=== PATIENT | female | born 1980 ===

== ENCOUNTER 2017-11-01 12:27 | Emergency (ER) | payer OTHER ==
[~2017-11-01] VITALS: Ht 162.6 cm; Wt 77.1 kg
[~2017-11-01 12:27] MED LIST: PRENATAL1 TAB
== END 2017-11-01 14:57 | disposition home or self-care (01) ==
LOC: ER 12:27
DX: S90.02XA Contusion of left ankle, initial encounter (principal); W18.39XA Other fall on same level, initial encounter; Y93.89 Activity, other specified; Y92.89 Other specified places as the place of occurrence of the external cause; Y99.8 Other external cause status

== ENCOUNTER 2018-04-20 07:57 | Outpatient (CLI) | payer OTHER | END 2018-04-20 08:08 | disposition home or self-care (01) | LOC: LAB 07:57 | DX: Z00.00 Encounter for general adult medical examination without abnormal findings (principal); R42 Dizziness and giddiness ==

== ENCOUNTER 2018-07-22 12:34 | Emergency (ER) | payer OTHER ==
[~2018-07-22] VITALS: Ht 167.6 cm; Wt 106.6 kg
== END 2018-07-22 17:09 | disposition home or self-care (01) ==
LOC: ER 12:34
DX: T78.1XXA Other adverse food reactions, not elsewhere classified, initial encounter (principal); R21 Rash and other nonspecific skin eruption

== ENCOUNTER → 2019-07-17 08:14 | Outpatient (CLI) | payer OTHER | END | disposition home or self-care (01) | LOC: LAB 07-14 14:53 | DX: Z00.00 Encounter for general adult medical examination without abnormal findings (principal); E78.89 Other lipoprotein metabolism disorders; N39.0 Urinary tract infection, site not specified; E55.9 Vitamin D deficiency, unspecified; R42 Dizziness and giddiness; R10.2 Pelvic and perineal pain ==